=== PATIENT | female | born 1985 | race African-American/Black ===

== ENCOUNTER 2016-11-13 22:34 | Inpatient (IN) | payer OTHER ==
[~2016-11-13] VITALS: Ht 167.6 cm; Wt 126.2 kg
[2016-11-13 23:30] LABS: HEMATOCRIT 36.4 % (36.0-46.0); MCH 28.8 PG (29.0-34.0); MCHC 33.5 G/DL (30.0-36.0); MCV 85.8 FL (83-99); MEAN PLAT.VOLUME 11.3 uM^3 (9.5-12.4); PLATELET COUNT 224 K/uL (156-360); RBC DIS.WIDTH-CV 13.8 % (11.8-14.6); RBC DIS.WIDTH-SD 43.1 % (39-53); RED BLOOD COUNT 4.24 M/uL (3.80-5.20); WHITE BLOOD COUNT 8.9 K/uL (4.1-10.2)
[2016-11-13 23:39] LABS: CHLORIDE 108 mEq/L (99-109); POTASSIUM 3.9 mEq/L (3.7-5.4); SODIUM 141 mEq/L (136-147)
[2016-11-13 23:40] LABS: GLUCOSE 91 mg/dL (70-99)
[2016-11-13 23:42] LABS: ANION GAP 9 MEQ/L (2-14)
[2016-11-13 23:44] LABS: GFR ESTIMATE (CALCULATED) > 59 mL/min/
[2016-11-13 23:45] LABS: UREA NITROGEN (BUN) 12 mg/dL (9-23)
[2016-11-14 04:19] VITALS: BP 124/72
[2016-11-14] MEDS ORDERED: HYDROXYZINE HCL25 MG PO ×2 (05:48→05:53)
[2016-11-14] MEDS ORDERED: VENTOLIN HFA18 GM IH (06:03)
[2016-11-14 08:28] VITALS: BP 102/69
[2016-11-14 10:54] LABS: HEMATOCRIT 33.2 % (36.0-46.0); MCH 29.3 PG (29.0-34.0); MEAN PLAT.VOLUME 11.6 uM^3 (9.5-12.4); PLATELET COUNT 200 K/uL (156-360); RBC DIS.WIDTH-CV 13.8 % (11.8-14.6); RBC DIS.WIDTH-SD 43.5 % (39-53); RED BLOOD COUNT 3.86 M/uL (3.80-5.20); WHITE BLOOD COUNT 7.2 K/uL (4.1-10.2)
[2016-11-14 11:20] VITALS: BP 126/87
[2016-11-14 11:22] LABS: ANION GAP 6 MEQ/L (2-14); CHLORIDE 111 MEQ/L (99-109); GFR ESTIMATE (CALCULATED) > 59 mL/min/; GLUCOSE 94 mg/dL (70-99); POTASSIUM 3.8 MEQ/L (3.7-5.4); SAMPLE HEMOLYSIS CHECK 0; SAMPLE ICTERIC CHECK 0; SAMPLE LIPEMIA CHECK 0; SODIUM 139 MEQ/L (136-147); UREA NITROGEN (BUN) 10 mg/dL (9-23)
[2016-11-14 12:14] LABS: MAGNESIUM 1.9 mg/dl (1.3-2.7)
[2016-11-14] MEDS ORDERED: ADVIL,NUPRIN,M200 MG PO (15:07)
[2016-11-14 15:41] VITALS: BP 112/68
[2016-11-14 18:09] LABS: COLOR BROWN ((YELLOW))
[2016-11-14 18:10] LABS: ADD MIUA? YES; BILIRUBIN SMALL; BLOOD LARGE; GLUCOSE (STRIP) NEGATIVE; KETONES NEGATIVE; LEUKOCYTES TRACE; NITRITE NEGATIVE; PROTEIN (STRIP) 30; SPECIFIC GRAVITY 1.026 (1.000-1.030); UROBILINOGEN 0.2 MG/DL (0.2-1.0)
[2016-11-14 18:25] LABS: AMPHETAMINES QUANT VALUE 0 NG/ML; BARBITUATES QUANT VALUE 0 NG/ML; BENZODIAZEPINES, URINE SCREEN POSITIVE (200 ng/mL); OPIATES QUANTITATIVE VALUE 0 NG/ML; PHENCYCLIDINE QUANT VALUE 0 NG/ML
[2016-11-14 19:45] LABS: EPITHELIAL CELLS NONE SEEN /HPF; RED BLOOD CELLS TNTC /HPF (0-5)
[2016-11-14 19:46] LABS: BACTERIA RARE /HPF; MUCUS RARE /LPF; UCUL ADDED? NO
[2016-11-14 19:47] LABS: CASTS NONE SEEN /LPF; CRYSTALS NONE SEEN; WHITE BLOOD CELLS RARE /HPF (0-5)
[2016-11-14 20:39] VITALS: BP 119/71
[2016-11-15 00:56] VITALS: BP 111/67
[2016-11-15 04:00] VITALS: BP 125/87
[2016-11-15 07:10] LABS: MCH 29.4 PG (29.0-34.0); MCHC 34.1 G/DL (30.0-36.0); MCV 86.3 FL (83-99); MEAN PLAT.VOLUME 11.7 uM^3 (9.5-12.4); PLATELET COUNT 195 K/uL (156-360); RBC DIS.WIDTH-CV 13.5 % (11.8-14.6); RBC DIS.WIDTH-SD 42.5 % (39-53); RED BLOOD COUNT 3.71 M/uL (3.80-5.20); WHITE BLOOD COUNT 7.4 K/uL (4.1-10.2)
[2016-11-15 07:13] VITALS: BP 107/55
[2016-11-15 07:34] LABS: ALKALINE PHOSPHATASE 54 IU/L (3-129); ANION GAP 7 MEQ/L (2-14); CHLORIDE 110 MEQ/L (99-109); GFR ESTIMATE (CALCULATED) > 59 mL/min/; GLUCOSE 100 mg/dL (70-99); POTASSIUM 3.8 MEQ/L (3.7-5.4); SAMPLE HEMOLYSIS CHECK 0; SAMPLE ICTERIC CHECK 0; SAMPLE LIPEMIA CHECK 0; SODIUM 141 MEQ/L (136-147); TOTAL BILIRUBIN 0.3 MG/DL (0.0-1.0); UREA NITROGEN (BUN) 11 mg/dL (9-23)
[2016-11-15 13:04] VITALS: BP 122/74
== END 2016-11-15 16:40 | disposition home or self-care (01) | DRG 101 ==
LOC: EME 22:34 → EDBD 22:34 → EDOF 11-14 02:49 → 3EAST 11-14 02:49
PROVIDERS: Emergency Medicine; Hospitalist
DX: G40.409 Other generalized epilepsy and epileptic syndromes, not intractable, without status epilepticus (principal); R47.01 Aphasia; F12.90 Cannabis use, unspecified, uncomplicated; F17.200 Nicotine dependence, unspecified, uncomplicated; J45.909 Unspecified asthma, uncomplicated; Z68.41 Body mass index [BMI] 40.0-44.9, adult; R10.9 Unspecified abdominal pain; E66.9 Obesity, unspecified
CPT/HCPCS: 70450; 70551; 72131; 80048; 80053; 80069; 80306 90; 81003; 83605; 83735; 84145 90; 85027; 93005; 95819; 99202; 99281; 99284; J1650; J1953; J2060; J2250; J7030; J7050